=== PATIENT | male | born 2000 | race Caucasian/White ===

== ENCOUNTER 2022-01-07 12:02 | Emergency (ER) | payer OTHER, SELFPAY ==
[2022-01-07 12:10] VITALS: BP 120/70; PULSE 58; RESP 18; TEMP 36.6; O2SAT 97; BMI 28.3
[2022-01-07] MEDS: Hydrocortisone 1 % Ointment 28.35 GM TUBE 10 APPL TOPICAL (13:42)
[2022-01-07] MEDS: 0.9 % Sodium Chloride 1,000 ML 999 ML IVCONT (13:42)
[2022-01-07] MEDS: diphenhydrAMINE HCL 25 MG TABLET 50 MG PO (13:45)
[2022-01-07] MEDS: predniSONE 20 MG TABLET 60 MG PO (13:45)
[2022-01-07 13:49] LABS: MANUAL DIFF FLAG NO
[2022-01-07 13:52] LABS: Basophils Absolute Auto 0.1 X10*3/uL (0.0-0.2); Basophils Percent Auto 1.7 % (0-2); Eosinophils Absolute Auto 0.8 X10*3/uL (0.0-0.4); Eosinophils Percent Auto 10.4 % (0-4); Hematocrit 45.1 % (42.0-52.0); Hemoglobin 14.9 g/dl (14.0-18.0); Imm Gran Abs Auto 0.02 X10*3/uL (0.00-0.03); Imm Gran Pct Auto 0.3 % (0.0-0.4); Lymphocytes Percent Auto 26.9 % (20-40); Mean Corpuscular Hemoglobin 30.2 pg (27.0-33.0); Mean Corpuscular Volume 91.3 fL (80.0-98.0); Mean Platelet Volume 10.5 fL (9.4-12.4); Monocytes Absolute Auto 0.7 X10*3/uL (0.1-1.2); Monocytes Percent Auto 9.1 % (2-11); Neutrophils Absolute Auto 3.9 x10*3/uL (2.0-8.3); Neutrophils Percent Auto 51.6 % (45-73); Platelet Count 334 X10*3/uL (160-400); Red Blood Count 4.94 X10*6/uL (4.60-5.80); Red Cell Distribution Width 13.2 % (11.0-16.0); White Blood Count 7.6 X10*3/uL (4.8-10.8)
[2022-01-07 14:02] LABS: INTERNATIONAL NORM RATIO 1.1 (0.9-1.1); Prothrombin Time 12.2 SEC (9.9-13.0)
--- NOTE | 2022-01-07 14:05 | ED_ITS ---
HPI - Skin/Abscess/Foreign Bdy General Chief complaint: Skin/Abscess/Foreign Body Stated complaint: Allergic reaction Time Seen by Provider: 01/07/22 13:08 Source: patient Mode of arrival: ambulatory Limitations: no limitations History of Present Illness HPI narrative: 21-year-old male with a past medical history of eczema presenting to the ED with complaints of worsening eczema rash over the past few days and that he cannot stand it anymore he does not know had a take care of this eczema rash and no one at his house helps him or understands how to take care of this eczema rash as well. Otherwise he denies any fevers, history of MRSA, chills, body aches, trouble swallowing or breathing, sore throat or any IV drug use or any other symptoms complaints or concerns at this time. complaint: rash Onset (ago): day(s) Location: generalized Severity: severe Quality: constant and pruritic Pain Consistency: constant Relieving factors: none Exacerbating factors: none Context: other (History of eczema) Associated symptoms: denies other symptoms Treatments prior to arrival: none Related Data Previous Rx's Medication Instructions Recorded betamethasone dipropionate 0.05 % 1 appl TOPICAL BID PRN #454 g 01/07/22 topical ointment cephalexin 500 mg capsule 500 mg PO Q6H 10 Days #40 cap 01/07/22 diphenhydramine HCl 25 mg tablet 50 mg PO TID PRN #14 tab 01/07/22 (Benadryl Allergy) doxycycline monohydrate 100 mg 100 mg PO BID 14 Days #28 tab 01/07/22 tablet prednisone 10 mg tablet See Rx Instructions .ROUTE 01/07/22 .COMPLEX #55 tab Allergies Allergy/AdvReac Type Severity Reaction Status Date / Time apple Allergy Anaphylaxis Verified 01/07/22 12:16 banana Allergy Anaphylaxis Verified 01/07/22 12:16 nut - unspecified Allergy Anaphylaxis Verified 01/07/22 12:16 Seasonal Allergies Allergy Unknown Verified 01/07/22 12:16 Review of Systems Review of Systems: Constitutional : No Fever, No Chills , no body aches, no recent illness Head/Face: No facial swelling, No facial redness ENT/Mouth : No oral/throat swelling, No Hoarseness, No Swallowing Difficulty Eyes: No Eye Pain, No Swelling, No Redness Cardiovascular : No Chest Pain, No SOB, No palpitations Respiratory : No Cough, No Sputum, No Wheezing, No Smoke Exposure, No Dyspnea Gastrointestinal : No Nausea, No Vomiting, No Diarrhea, No abdominal Pain Genitourinary : No Dysuria, No Urinary Frequency, No Hematuria Musculoskeletal : No joint pain, No Myalgias, No Joint Swelling Skin : positive rash/skin lesions Neuro : No Weakness, No Numbness, No Headache, No dizziness, No tingling Psych : No Anxiety/Panic, No Depression Heme/Lymph: No Bruising, No Lymphadenopathy Endocrine : No Polyuria, No Polydipsia Denies changes in lotions or detergents. Denies new medications or any changes in medications. Denies drainage from rash. Denies any recent sick contacts or recent travel. Yes all other systems are reviewed and are negative PMFSH Past Medical History Attestation statement: The following information was validated with the patient. Social History Social History Advance Directives: No Advance Directives Information Provided: No Physical Exam 2 Vital Signs: Vital Signs: Last Vital Signs Temp 97.9 F 01/07/22 12:10 Pulse 58 01/07/22 12:10 Resp 18 01/07/22 12:10 BP 120/70 01/07/22 12:10 Pulse Ox 97 01/07/22 12:10 BMI result Body Mass Index 28.3 vital signs have been reviewed as normal and appeared to be correct. Blood pressure normal Heart rate normal. Respiration rate normal. Temperature normal. Oxygen saturation normal. Appearance: Alert. Oriented X3. No acute distress. Head: Normal external exam. Normocephalic. Atraumatic. Eyes: PERRLA. EOMI. Conjunctiva and sclera normal. Eyelids normal. ENT: Pharynx normal. Uvula midline. Moist mucous membranes. Neck: Normal inspection. Neck supple. FROM. CVS: Normal heart rate and rhythm. Respiratory: No respiratory distress. Painless inspiration. Skin: Skin warm and dry. Normal skin color. Normal skin turgor. No lacerations noted. Although patient noted to have an eczematous rash scattered throughout his entire body that appears superimposed. No str eaking/induration/fluctuance/drainage noted at this time. Extremities: Extremities exhibit normal range of motion. Neuro: Oriented X 3. No motor deficit. No sensory deficit. Reflexes normal. Normal steady gait. No focal neuro deficits noted. Vascular: + radial pulses/+ 2 distal pedal pulses/+2 dorsalis pedis b/l. Normal cap refill. No cyanosis noted to upper extremity nails and lower extremity toes nails. Course Course Course Narrative: 13pm - 21-year-old male with a past medical history of eczema presenting to the ED with complaints of worsening eczema rash over the past few days. On exam patient has a severe eczematous rash that appears superimposed appears infected. Will obtain labs, blood cultures, lactic acid. Provide a L of IV fluids and Rocephin with topical steroids and p.o. steroids and Benadryl and re-evaluate. Reevaluation(s) Reevaluation #1: - labs reviewed and all within normal limits. - patient requesting to be admitted because he is nervous that the rash which is get worse and he does not have anyone that can help him take care of it and he does not feel comfortable taking care of this rash at home due to it has become the worse he has ever seen it. Will plan to admit for eczema superimposed with cellulitis. Time: 14:17 Reevaluation #2: The hospitalist came down and evaluated the patient and at this time they do not believe that the patient meets admission criteria due to his rash appears chronic and he ran out of his creams at home and he has not been using them in quite some time and all his labs are normal and he has not had any fevers chills therefore at this time will DC home with doxycycline and Keflex a course of steroids and topical eczema cream and instructions to follow-up with wound clinic and his PCP and a membership counselor and to return with any new or worsening symptoms. Patient understands agrees with this plan. Time: 15:03 MDM - Skin/Abscess/Foreign Bdy Medical Records Attestation: I reviewed the patient's medical records. Lab Data Attestation: I reviewed the patient's lab results. Result diagrams: 01/07/22 13:34 01/07/22 13:34 Labs: Lab Results 01/07/22 01/07/22 01/07/22 Range/Units 13:34 13:34 13:34 WBC 7.6 (4.8-10.8) X10*3/uL RBC 4.94 (4.60-5.80) X10*6/uL Hgb 14.9 (14.0-18.0) g/dl Hct 45.1 (42.0-52.0) % MCV 91.3 (80.0-98.0) fL MCH 30.2 (27.0-33.0) pg MCHC 33.0 (31.0-36.0) g/dl RDW 13.2 (11.0-16.0) % Plt Count 334 (160-400) X10*3/uL MPV 10.5 (9.4-12.4) fL Immature Gran % (Auto) 0.3 (0.0-0.4) % Neut % (Auto) 51.6 (45-73) % Lymph % (Auto) 26.9 (20-40) % Dewey % (Auto) 9.1 (2-11) % Eos % (Auto) 10.4 H (0-4) % Baso % (Auto) 1.7 (0-2) % Lymph # (Auto) 2.0 (1.2-4.9) X10*3/uL Dewey # (Auto) 0.7 (0.1-1.2) X10*3/uL Eos # (Auto) 0.8 H (0.0-0.4) X10*3/uL Baso # (Auto) 0.1 (0.0-0.2) X10*3/uL Abs Immat Gran (auto) 0.02 (0.00-0.03) X10*3/uL Absolute Neuts (auto) 3.9 (2.0-8.3) x10*3/uL Absolute Nucleated RBC 0.000 (0.0-0.012) X10*3/uL Nucleated RBC % (auto) 0.0 (0.0-0.2) /100WBC ESR 3 (0-15) MM/HR PT 12.2 (9.9-13.0) SEC INR 1.1 (0.9-1.1) Sodium (135-145) mmol/L Potassium (3.3-5.1) mmol/L Chloride (96-108) mmol/L Carbon Dioxide (22-29) mmol/L Anion Gap (12-20) BUN (9-16) mg/dL Creatinine (0.5-1.4) mg/dL Estim Creat Clear Calc Estimated GFR Random Glucose (60-115) mg/dL Lactic Acid (0.5-2.0) mmol/L Calcium (8.4-10.2) mg/dL Magnesium (1.6-2.6) mg/dL Total Bilirubin (0.0-1.0) mg/dL AST (5-37) U/L ALT (0-40) U/L Alkaline Phosphatase (39-117) U/L C-Reactive Protein (< or = 0.50) mg/dL Total Protein (6.5-8.0) g/dL Albumin (3.5-5.0) g/dL 01/07/22 01/07/22 Range/Units 13:34 13:34 WBC (4.8-10.8) X10*3/uL RBC (4.60-5.80) X10*6/uL Hgb (14.0-18.0) g/dl Hct (42.0-52.0) % MCV (80.0-98.0) fL MCH (27.0-33.0) pg MCHC (31.0-36.0) g/dl RDW (11.0-16.0) % Plt Count (160-400) X10*3/uL MPV (9.4-12.4) fL Immature Gran % (Auto) (0.0-0.4) % Neut % (Auto) (45-73) % Lymph % (Auto) (20-40) % Dewey % (Auto) (2-11) % Eos % (Auto) (0-4) % Baso % (Auto) (0-2) % Lymph # (Auto) (1.2-4.9) X10*3/uL Dewey # (Auto) (0.1-1.2) X10*3/uL Eos # (Auto) (0.0-0.4) X10*3/uL Baso # (Auto) (0.0-0.2) X10*3/uL Abs Immat Gran (auto) (0.00-0.03) X10*3/uL Absolute Neuts (auto) (2.0-8.3) x10*3/uL Absolute Nucleated RBC (0.0-0.012) X10*3/uL Nucleated RBC % (auto) (0.0-0.2) /100WBC ESR (0-15) MM/HR PT (9.9-13.0) SEC INR (0.9-1.1) Sodium 140 (135-145) mmol/L Potassium 4.1 (3.3-5.1) mmol/L Chloride 107 (96-108) mmol/L Carbon Dioxide 25 (22-29) mmol/L Anion Gap 12 (12-20) BUN 11 (9-16) mg/dL Creatinine 0.80 (0.5-1.4) mg/dL Estim Creat Clear Calc 141.1 Estimated GFR > 60 Random Glucose 84 (60-115) mg/dL Lactic Acid 1.5 (0.5-2.0) mmol/L Calcium 9.7 (8.4-10.2) mg/dL Magnesium 2.0 (1.6-2.6) mg/dL Total Bilirubin 1.0 (0.0-1.0) mg/dL AST 17 (5-37) U/L ALT 7 (0-40) U/L Alkaline Phosphatase 82 (39-117) U/L C-Reactive Protein 0.30 (< or = 0.50) mg/dL Total Protein 7.5 (6.5-8.0) g/dL Albumin 4.1 (3.5-5.0) g/dL Critical Care Time Critical Care Time Critical Care Time: Yes Total Critical Care Time: 60 Attestation: I personally attest to this time spent taking care of the patient Discharge Plan Discharge Clinical Impression: Eczema, Cellulitis Patient Disposition: Home, Self-Care Instructions: Cellulitis (ED), Eczema (ED) Additional Instructions: You have pending lab results if any are positive you will be contacted. Return if any new or worsening symptoms. Follow-up with the wound clinic and possibly a membership counselor. Prescriptions: New doxycycline monohydrate 100 mg tablet 100 mg PO BID 14 Days Qty: 28 0RF cephalexin 500 mg capsule 500 mg PO Q6H 10 Days Qty: 40 0RF prednisone 10 mg tablet See Rx Instructions .ROUTE .COMPLEX Qty: 55 0RF Rx Instructions: prednisone 5 mg: take 10 tablets (60 mg) on Day 1; 9 tablets (55 mg) on Day 2; then decrease by 1 tablet every day until finished diphenhydramine HCl [Benadryl Allergy] 25 mg tablet 50 mg PO TID PRN (Reason: itching) Qty: 14 0RF betamethasone dipropionate 0.05 % ointment 1 appl topical BID PRN (Reason: eczema severe ) Qty: 454 3RF Referrals: Tran Bailey PA [Physician [employer]] - 2 days Print Language: Kiswahili
[2022-01-07 14:10] LABS: Lactic Acid 1.5 mmol/L (0.5-2.0)
[2022-01-07 14:15] LABS: Alanine Aminotransferase 7 U/L (0-40); Albumin Level 4.1 g/dL (3.5-5.0); Alkaline Phosphatase 82 U/L (39-117); Anion Gap 12 (12-20); Aspartate Amino Transferase 17 U/L (5-37); Blood Urea Nitrogen 11 mg/dL (9-16); Calcium 9.7 mg/dL (8.4-10.2); Carbon Dioxide 25 mmol/L (22-29); Chloride 107 mmol/L (96-108); Creatinine Clr Calc Pharmacy 141.1; Estimated Glomerular Filt Rate > 60; Glucose Random 84 mg/dL (60-115); Potassium 4.1 mmol/L (3.3-5.1); Sodium 140 mmol/L (135-145); Total Protein 7.5 g/dL (6.5-8.0)
[2022-01-07] MEDS: cefTRIAXone sodium 1 GM in 0.9 % Sodium Chloride 50 ML IV (14:19)
[2022-01-07 14:46] LABS: Erythrocyte Sedimentation Rate 3 MM/HR (0-15)
[2022-01-07 15:57] LABS: Syphilis Screen Nonreactive (Nonreactive)
[2022-01-07 15:58] LABS: COVID-19 Test Negative (Negative)
[2022-01-07 17:37] LABS: HBS Num1 1.37 mIU/mL (0-7.99); HBc Num1 0.11 S/CO (0.00-0.79); HBsAGNum1 0.14 S/CO (0.00-0.99); Hepatitis B Core Antibody Nonreactive (Nonreactive); Hepatitis B Surface Antigen Negative (Negative); ~HepC Num1 0.12 S/CO (0.00-0.79); ~Hepatitis B Surface Antibody NONREACTIVE (Nonreactive); ~Hepatitis C Antibody Nonreactive (Nonreactive)
[2022-01-07 17:38] LABS: HIV AB/AG Nonreactive (Nonreactive); HIV Num 1 0.07 S/CO (0.00-0.99)
[2022-01-10 15:01] LABS: Anti Nuclear Antibody Screen NEGATIVE (NEGATIVE)
[2022-01-11 12:56] LABS: Immunoglobulin E 4583 kU/L (<OR=114)
== END 2022-01-07 15:37 | disposition home or self-care (01) ==
PROVIDERS: Physician Assistant Medical; Student in an Organized Health Care Education/Training Program; Emergency Provider Emergency Medicine Emergency Medical Services
DX: L03.113 Cellulitis of right upper limb (principal); L03.114 Cellulitis of left upper limb; L03.312 Cellulitis of back [any part except buttock and flank]; L03.116 Cellulitis of left lower limb; L03.115 Cellulitis of right lower limb; K13.0 Diseases of lips; L30.9 Dermatitis, unspecified; Z20.822 Contact with and (suspected) exposure to COVID-19
CPT/HCPCS: 36415; 80053; 82785; 83605; 83735; 85025; 85610; 85652; 86038; 86039; 86140; 86704; 86706; 86780; 86803; 87040; 87340; 87389; 87635; 96361; 96365; 99283; 99291; J0696; Q0163